=== PATIENT | female | born 1960 | race African-American/Black ===

== ENCOUNTER 2024-02-13 18:46 | Inpatient (IN) | payer MEDICAID ==
[~2024-02-13] VITALS: Ht 152.4 cm; Wt 161.0 kg
[2024-02-13 19:13] VITALS: BP 122/80; PULSE 115; RESP 20; TEMP 99.6
[2024-02-13 20:19] LABS: BASOPHILS % (AUTO) 0.2 % (0.0-2.0); HEMATOCRIT 37.3 % (36-48); HEMOGLOBIN 12.3 g/dL (12.0-16.0); LYMPHOCYTES # (AUTO) 1.3 K/uL (2.5-16.5); MEAN CORPUSCULAR HEMOGLOBIN 31 pg (27-31); MEAN CORPUSCULAR HGB CONC 33 g/dL (33-37); MEAN CORPUSCULAR VOLUME 93.8 fL (80-94); MONOCYTES # (AUTO) 0.6 K/uL (0.8-1.0); MONOCYTES % (AUTO) 2.7 % (1.7-9.3); NEUTROPHILS # (AUTO) 19.7 K/uL (1.8-7.7); NEUTROPHILS % (AUTO) 91.3 % (42.2-75.2); PLATELET COUNT (AUTO) 303 K/uL (140-450); RED BLOOD CELL COUNT(AUTO) 3.97 MIL/uL (4.20-5.40); RED CELL DISTRIBUTION WIDTH 13.9 % (11.6-13.7)
[2024-02-13 20:31] LABS: LYMPHOCYTES % (AUTO) 5.8 % (20.5-51.1)
[2024-02-13 20:34] LABS: WHITE BLOOD COUNT (AUTO) 21.6 K/uL (4.8-10.8)
[2024-02-13 20:40] LABS: ALANINE AMINOTRANSFERASE 24 U/L (12-78); ALBUMIN 2.7 g/dL (3.4-5.0); ALKALINE PHOSPHATASE 67 U/L (50-136); ASPARTATE AMINOTRANSFERASE 17 U/L (15-37); BILIRUBIN,DIRECT 0.1 mg/dL (0.0-0.3); CREATINE KINASE, TOTAL 28 U/L (26-192); LIPASE 13 U/L (16-77); TOTAL BILIRUBIN 0.7 mg/dL (0.0-1.0); TOTAL PROTEIN, SERUM 6.9 g/dL (6.4-8.2)
[2024-02-13 20:42] VITALS: O2SAT 96
[2024-02-13 20:42] LABS: FLU A ANTIGEN negative (NEGATIVE); FLU B ANTIGEN NEGATIVE (NEGATIVE)
[2024-02-13 20:42] LABS: LACTIC ACID 0.7 mmol/L (0.4-2.0)
[2024-02-13 20:43] LABS: INR 1.08 (0.8-1.2); PARTIAL THROMBOPLASTIN TIME 29.7 secs (22-35.6); PROTHROMBIN TIME 11.3 secs (10.8-13.4)
[2024-02-13] MEDS: cefTRIAXone 2,000 MG in DEXTROSE 5% 100 ML IV ONE (20:45)
[2024-02-13] MEDS: VANCOMYCIN 1,000 MG in DEXTROSE 5% 250 ML IV ONE (20:45)
[2024-02-13 20:57] LABS: ANION GAP 15.5 (8-16); CARBON DIOXIDE 21.5 mmol/L (21-32); CREATININE 0.4 mg/dL (0.6-1.3)
[2024-02-13] MEDS: KETOROLAC 30 MG/ML VIAL IVP ONE (21:00)
[2024-02-13] MEDS: NACL 0.9% 1,000 ML IV ONE ×2 (21:00)
[2024-02-13] MEDS: ACETAMINOPHEN 325 MG TAB PO ONE (21:16)
[2024-02-13] MEDS ORDERED: cefTRIAXone 2,000 MG VIAL ONE (21:18)
[2024-02-13] MEDS ORDERED: VANCOMYCIN 1,000 MG VIAL ONE (22:33)
[2024-02-13 23:30] VITALS: O2SAT 100
[2024-02-14 00:47] LABS: APPEARANCE,URINE HAZY (CLEAR); BILIRUBIN,URINE 2+ (NEGATIVE); BLOOD, URINE 3+ (NEGATIVE); COLOR,URINE YELLOW (YELLOW); LEUKOCYTE ESTERASE ,URINE TRACE (NEGATIVE); NITRITE, URINE NEGATIVE (NEGATIVE); PROTEIN,URINE 1+ (NEGATIVE); UGLUCOSE NEGATIVE (NEGATIVE)
[2024-02-14 00:58] LABS: ICTOTEST NEGATIVE (NEGATIVE)
[2024-02-14 01:01] LABS: RBC,URINE 50-80 /HPF (0-5)
[2024-02-14 01:04] LABS: WBC,URINE 16-25 (MOD) /HPF (0-5)
[2024-02-14 01:05] LABS: BACTERIA,URINE 2+ /HPF (None Seen); MUCUS,URINE 1+ /LPF (None Seen)
[2024-02-14 01:06] LABS: YEAST,URINE Rare /HPF (None Seen)
[2024-02-14 01:53] VITALS: O2SAT 96
[2024-02-14] MEDS ORDERED: ONDANSETRON 4 MG/2 ML VIAL IM/IVP PRN (02:25)
[2024-02-14] MEDS ORDERED: guaiFENesin DM 200/20 MG-10 ML 10 ML UDC PO PRN (02:25)
[2024-02-14] MEDS ORDERED: DOCUSATE SODIUM 100 MG GELCAP PO PRN (02:25)
[2024-02-14] MEDS ORDERED: BISA-213 RC (02:49)
[2024-02-14] MEDS ORDERED: SPIMDI INH (02:49)
[2024-02-14] MEDS ORDERED: GABA300C PO (02:49)
[2024-02-14] MEDS ORDERED: ONDA-188 PO (02:49)
[2024-02-14] MEDS ORDERED: FURO-570 PO (02:49)
[2024-02-14] MEDS ORDERED: ACET-10509 PO (02:49)
[2024-02-14] MEDS ORDERED: BUDE1AER IH (02:49)
[2024-02-14] MEDS ORDERED: POTA10TA70 PO (02:49)
[2024-02-14] MEDS ORDERED: CALC500C17 PO (02:49)
[2024-02-14] MEDS ORDERED: ASPI-1822 PO (02:49)
[2024-02-14] MEDS ORDERED: MAGN400S60 PO (02:49)
[2024-02-14] MEDS ORDERED: MULT-2253 PO (02:49)
[2024-02-14] MEDS ORDERED: ALBU0.0912 IH (02:49)
[2024-02-14] MEDS ORDERED: HYDR28CR68 TP (02:49)
[2024-02-14] MEDS ORDERED: ERGO-30 PO (02:49)
[2024-02-14] MEDS ORDERED: DICL-342 PO (02:49)
[2024-02-14] MEDS ORDERED: APIX2.5 PO (02:49)
[2024-02-14] MEDS ORDERED: DULO30EC PO (02:49)
[2024-02-14] MEDS ORDERED: FOLI1TAB90 PO (02:49)
[2024-02-14] MEDS ORDERED: DIPH25TA53 PO (02:49)
[2024-02-14] MEDS ORDERED: ACET-8905 PO (02:49)
[2024-02-14 04:34] VITALS: PULSE 16; RESP 16; O2SAT 98
[2024-02-14] MEDS ORDERED: PIPERACILLIN/TAZOBACTAM 3.375 GM in DEXTROSE 5% 50 ML IV SCH (05:00)
[2024-02-14] MEDS: ACETAMINOPHEN 325 MG TAB PO PRN (06:40)
[2024-02-14 06:44] LABS: BASOPHILS # (AUTO) 0.1 K/uL (0.00-0.22); BASOPHILS % (AUTO) 0.6 % (0.0-2.0); EOSINOPHILS # (AUTO) 0.1 K/uL (0-0.4); EOSINOPHILS % (AUTO) 0.9 % (0.0-4.0); HEMATOCRIT 36.8 % (36-48); HEMOGLOBIN 12.3 g/dL (12.0-16.0); LYMPHOCYTES # (AUTO) 0.6 K/uL (2.5-16.5); LYMPHOCYTES % (AUTO) 4.3 % (20.5-51.1); MEAN CORPUSCULAR HEMOGLOBIN 32 pg (27-31); MEAN CORPUSCULAR HGB CONC 34 g/dL (33-37); MEAN CORPUSCULAR VOLUME 94.6 fL (80-94); MONOCYTES # (AUTO) 0.4 K/uL (0.8-1.0); MONOCYTES % (AUTO) 2.8 % (1.7-9.3); NEUTROPHILS # (AUTO) 12.2 K/uL (1.8-7.7); NEUTROPHILS % (AUTO) 91.4 % (42.2-75.2); PLATELET COUNT (AUTO) 277 K/uL (140-450); RED BLOOD CELL COUNT(AUTO) 3.89 MIL/uL (4.20-5.40); RED CELL DISTRIBUTION WIDTH 13.8 % (11.6-13.7); WHITE BLOOD COUNT (AUTO) 13.4 K/uL (4.8-10.8)
[2024-02-14 07:18] LABS: ALBUMIN 2.6 g/dL (3.4-5.0); ANION GAP 11.5 (8-16); CALCIUM 9.9 mg/dL (8.5-10.1); CARBON DIOXIDE 27.1 mmol/L (21-32); CREATININE 0.5 mg/dL (0.6-1.3); PHOSPHORUS 2.5 mg/dL (2.5-4.9); POTASSIUM 3.6 mmol/L (3.5-5.1); TOTAL BILIRUBIN 0.7 mg/dL (0.0-1.0); TOTAL PROTEIN, SERUM 6.4 g/dL (6.4-8.2)
[2024-02-14] MEDS: NACL 0.9% 1,000 ML IV SCH (07:22)
[2024-02-14 08:00] VITALS: BP 110/51; PULSE 81; PULSE 87; RESP 18; TEMP 99.6; O2SAT 95; O2SAT 98
[2024-02-14] MEDS: PANTOPRAZOLE 40 MG TABEC PO SCH (08:48)
[2024-02-14] MEDS: LEVOFLOXACIN 250 MG/D5 PREMIX 50 ML IV SCH (11:30)
[2024-02-14] MEDS: SODIUM PHOSPHATE 118 ML ENEM RC ONE (11:35)
[2024-02-14] MEDS: POLYETHYLENE GLYCOL 17 GM/PKT PO SCH (11:39)
[2024-02-14 12:00] VITALS: BP 115/74; PULSE 71; PULSE 77; RESP 18; TEMP 99.4; O2SAT 98
[2024-02-14] MEDS: metroNIDAZOLE 500 MG/NS PREMIX 100 ML IV SCH (13:11)
[2024-02-14 16:00] VITALS: BP 117/63; PULSE 85; PULSE 86; RESP 18; TEMP 99; O2SAT 97
[2024-02-14 20:00] VITALS: BP 108/61; PULSE 100; PULSE 101; RESP 19; TEMP 97.7; O2SAT 97; O2SAT 99
[2024-02-15] VITALS: BP 99/50; PULSE 101; PULSE 103; RESP 18; TEMP 98.9; O2SAT 98
[2024-02-15 04:00] VITALS: BP 109/57; PULSE 100; PULSE 92; RESP 18; TEMP 97.5; O2SAT 95
[2024-02-15 05:49] LABS: BASOPHILS # (AUTO) 0.4 K/uL (0.00-0.22); BASOPHILS % (AUTO) 3.1 % (0.0-2.0); EOSINOPHILS # (AUTO) 1.5 K/uL (0-0.4); EOSINOPHILS % (AUTO) 12.4 % (0.0-4.0); HEMATOCRIT 45.2 % (36-48); HEMOGLOBIN 15.3 g/dL (12.0-16.0); LYMPHOCYTES # (AUTO) 0.6 K/uL (2.5-16.5); LYMPHOCYTES % (AUTO) 4.8 % (20.5-51.1); MEAN CORPUSCULAR HEMOGLOBIN 32 pg (27-31); MEAN CORPUSCULAR HGB CONC 34 g/dL (33-37); MEAN CORPUSCULAR VOLUME 93.3 fL (80-94); MONOCYTES # (AUTO) 0.4 K/uL (0.8-1.0); MONOCYTES % (AUTO) 3.4 % (1.7-9.3); NEUTROPHILS % (AUTO) 76.3 % (42.2-75.2); PLATELET COUNT (AUTO) 306 K/uL (140-450); RED BLOOD CELL COUNT(AUTO) 4.85 MIL/uL (4.20-5.40); RED CELL DISTRIBUTION WIDTH 13.8 % (11.6-13.7); WHITE BLOOD COUNT (AUTO) 11.8 K/uL (4.8-10.8)
[2024-02-15 06:36] LABS: ALBUMIN 2.3 g/dL (3.4-5.0); ANION GAP 17.1 (8-16); CALCIUM 9.7 mg/dL (8.5-10.1); CARBON DIOXIDE 20.7 mmol/L (21-32); CREATININE 0.4 mg/dL (0.6-1.3); POTASSIUM 3.8 mmol/L (3.5-5.1); TOTAL BILIRUBIN 0.6 mg/dL (0.0-1.0)
[2024-02-15 08:00] VITALS: BP 121/53; PULSE 86; PULSE 87; RESP 19; TEMP 96.9; O2SAT 94
[2024-02-15] MEDS: metroNIDAZOLE 500 MG/NS PREMIX 100 ML IV SCH (08:00)
[2024-02-15] MEDS ORDERED: POLYETHYLENE GLYCOL 17 GM/PKT PO SCH (09:00)
[2024-02-15] MEDS ORDERED: VANCOMYCIN PER PHARMACY MC PRN (09:30)
[2024-02-15] MEDS: VANCOMYCIN 1.25GM PREMIX 250 ML IV SCH (10:12)
[2024-02-15] MEDS: diphenhydrAMINE 50 MG/ML VIAL IVP SCH (11:57)
[2024-02-15 12:00] VITALS: BP 114/54; PULSE 106; PULSE 88; RESP 19; TEMP 97.3
[2024-02-15 16:00] VITALS: BP 127/53; PULSE 81; PULSE 82; RESP 18; TEMP 99.3; O2SAT 94
[2024-02-15 20:00] VITALS: BP 110/47; PULSE 87; PULSE 89; RESP 18; TEMP 98.3; O2SAT 94; O2SAT 97
[2024-02-16] VITALS: BP 110/42; PULSE 81; PULSE 85; RESP 18; TEMP 97.6; O2SAT 98
[2024-02-16] MEDS ORDERED: VANCOMYCIN PER PHARMACY MC PRN
[2024-02-16] MEDS: metroNIDAZOLE 500 MG/NS PREMIX 100 ML IV SCH (00:12)
[2024-02-16] MEDS ORDERED: VANCOMYCIN 1GM/DEXT 5% PREMIX 200 ML IV SCH (01:00)
[2024-02-16] MEDS ORDERED: [UNRECOGNIZED DRUG - OTHER] IV SCH (01:30)
[2024-02-16] MEDS ORDERED: VANCOMYCIN IV SCH (01:30)
[2024-02-16] MEDS: VANCOMYCIN 1,000 MG VIAL ONE (01:50)
[2024-02-16 04:00] VITALS: BP 98/43; PULSE 82; PULSE 85; RESP 17; TEMP 96.9; O2SAT 96
[2024-02-16 06:38] LABS: BASOPHILS % (AUTO) 0.3 % (0.0-2.0); EOSINOPHILS # (AUTO) 2.7 K/uL (0-0.4); EOSINOPHILS % (AUTO) 29.4 % (0.0-4.0); HEMATOCRIT 34.8 % (36-48); HEMOGLOBIN 11.9 g/dL (12.0-16.0); LYMPHOCYTES # (AUTO) 1.1 K/uL (2.5-16.5); LYMPHOCYTES % (AUTO) 11.5 % (20.5-51.1); MEAN CORPUSCULAR HEMOGLOBIN 32 pg (27-31); MEAN CORPUSCULAR HGB CONC 34 g/dL (33-37); MEAN CORPUSCULAR VOLUME 92.8 fL (80-94); MONOCYTES # (AUTO) 0.7 K/uL (0.8-1.0); MONOCYTES % (AUTO) 7.1 % (1.7-9.3); NEUTROPHILS # (AUTO) 4.7 K/uL (1.8-7.7); NEUTROPHILS % (AUTO) 51.7 % (42.2-75.2); PLATELET COUNT (AUTO) 333 K/uL (140-450); RED BLOOD CELL COUNT(AUTO) 3.75 MIL/uL (4.20-5.40); RED CELL DISTRIBUTION WIDTH 13.4 % (11.6-13.7); WHITE BLOOD COUNT (AUTO) 9.2 K/uL (4.8-10.8)
[2024-02-16 07:02] LABS: ALBUMIN 2.1 g/dL (3.4-5.0); ANION GAP 10.8 (8-16); CALCIUM 9.3 mg/dL (8.5-10.1); CARBON DIOXIDE 26.7 mmol/L (21-32); CREATININE 0.4 mg/dL (0.6-1.3); POTASSIUM 3.5 mmol/L (3.5-5.1); TOTAL BILIRUBIN 0.7 mg/dL (0.0-1.0); TOTAL PROTEIN, SERUM 5.3 g/dL (6.4-8.2)
[2024-02-16 08:00] VITALS: BP 108/37; PULSE 82; PULSE 83; RESP 18; TEMP 97.9; O2SAT 98
[2024-02-16] MEDS: VANCOMYCIN 1.25GM PREMIX 250 ML IV SCH (10:40)
[2024-02-16 12:00] VITALS: BP 126/57; PULSE 87; RESP 18; TEMP 98.2; O2SAT 98
[2024-02-16 16:00] VITALS: BP 102/43; PULSE 83; RESP 18; TEMP 97.9; O2SAT 99
[2024-02-16 20:00] VITALS: BP 105/47; PULSE 95; RESP 18; TEMP 97.2; O2SAT 97
[2024-02-17 04:00] VITALS: BP 118/48; PULSE 75; RESP 18; TEMP 97.7; O2SAT 97
[2024-02-17 05:41] LABS: BASOPHILS # (AUTO) 0.1 K/uL (0.00-0.22); BASOPHILS % (AUTO) 0.8 % (0.0-2.0); EOSINOPHILS # (AUTO) 2.8 K/uL (0-0.4); EOSINOPHILS % (AUTO) 26.6 % (0.0-4.0); HEMATOCRIT 35.6 % (36-48); HEMOGLOBIN 11.8 g/dL (12.0-16.0); LYMPHOCYTES # (AUTO) 1.6 K/uL (2.5-16.5); LYMPHOCYTES % (AUTO) 15.2 % (20.5-51.1); MEAN CORPUSCULAR HEMOGLOBIN 31 pg (27-31); MEAN CORPUSCULAR HGB CONC 33 g/dL (33-37); MEAN CORPUSCULAR VOLUME 92.9 fL (80-94); MONOCYTES # (AUTO) 0.8 K/uL (0.8-1.0); MONOCYTES % (AUTO) 7.4 % (1.7-9.3); NEUTROPHILS # (AUTO) 5.3 K/uL (1.8-7.7); PLATELET COUNT (AUTO) 330 K/uL (140-450); RED BLOOD CELL COUNT(AUTO) 3.83 MIL/uL (4.20-5.40); RED CELL DISTRIBUTION WIDTH 13.9 % (11.6-13.7); WHITE BLOOD COUNT (AUTO) 10.5 K/uL (4.8-10.8)
[2024-02-17 06:11] LABS: ALBUMIN 2.3 g/dL (3.4-5.0); CALCIUM 9.5 mg/dL (8.5-10.1); CARBON DIOXIDE 27.4 mmol/L (21-32); CREATININE 0.4 mg/dL (0.6-1.3); POTASSIUM 3.4 mmol/L (3.5-5.1); TOTAL BILIRUBIN 0.8 mg/dL (0.0-1.0); TOTAL PROTEIN, SERUM 5.5 g/dL (6.4-8.2)
[2024-02-17 08:00] VITALS: BP 112/56; PULSE 77; RESP 18; TEMP 98.5; O2SAT 97
[2024-02-17 16:00] VITALS: BP 113/46; PULSE 91; RESP 18; TEMP 98.6; O2SAT 98
[2024-02-17] MEDS: POTASSIUM CHLORIDE 10 MEQ TABER PO PRN (17:21)
[2024-02-17 19:56] VITALS: PULSE 68; RESP 19; O2SAT 97
[2024-02-17 20:00] VITALS: BP 120/51; PULSE 90; RESP 18; TEMP 98.2; O2SAT 98
[2024-02-17] MEDS: ZOLPIDEM 5 MG TAB PO PRN (20:53)
[2024-02-18 04:24] VITALS: BP 108/49; PULSE 81; RESP 18; TEMP 97.8; O2SAT 97
[2024-02-18 05:33] LABS: BASOPHILS # (AUTO) 0.1 K/uL (0.00-0.22); BASOPHILS % (AUTO) 0.7 % (0.0-2.0); EOSINOPHILS # (AUTO) 2.4 K/uL (0-0.4); EOSINOPHILS % (AUTO) 24.7 % (0.0-4.0); HEMATOCRIT 33.5 % (36-48); HEMOGLOBIN 11.3 g/dL (12.0-16.0); LYMPHOCYTES # (AUTO) 2.6 K/uL (2.5-16.5); LYMPHOCYTES % (AUTO) 26.5 % (20.5-51.1); MEAN CORPUSCULAR HEMOGLOBIN 32 pg (27-31); MEAN CORPUSCULAR HGB CONC 34 g/dL (33-37); MEAN CORPUSCULAR VOLUME 92.8 fL (80-94); MONOCYTES # (AUTO) 0.7 K/uL (0.8-1.0); MONOCYTES % (AUTO) 6.9 % (1.7-9.3); NEUTROPHILS % (AUTO) 41.2 % (42.2-75.2); PLATELET COUNT (AUTO) 330 K/uL (140-450); RED BLOOD CELL COUNT(AUTO) 3.61 MIL/uL (4.20-5.40); RED CELL DISTRIBUTION WIDTH 13.8 % (11.6-13.7); WHITE BLOOD COUNT (AUTO) 9.7 K/uL (4.8-10.8)
[2024-02-18 06:13] LABS: ALBUMIN 2.3 g/dL (3.4-5.0); CALCIUM 9.5 mg/dL (8.5-10.1); CARBON DIOXIDE 26.7 mmol/L (21-32); POTASSIUM 3.7 mmol/L (3.5-5.1); TOTAL BILIRUBIN 0.8 mg/dL (0.0-1.0); TOTAL PROTEIN, SERUM 3.9 g/dL (6.4-8.2)
[2024-02-18 06:47] LABS: CREATININE 0.4 mg/dL (0.6-1.3)
[2024-02-18 08:00] VITALS: BP 104/50; PULSE 81; RESP 18; TEMP 98.6; O2SAT 98
[2024-02-18 20:00] VITALS: BP 112/58; PULSE 84; RESP 20; TEMP 98.8; O2SAT 96
[2024-02-19] MEDS: cefTRIAXone 1,000 MG VIAL ONE (01:36)
[2024-02-19 04:00] VITALS: BP 109/56; PULSE 84; RESP 19; TEMP 98.2; O2SAT 100
[2024-02-19 08:00] VITALS: BP 116/57; PULSE 60; RESP 18; TEMP 98.4; O2SAT 98
[2024-02-19 10:01] LABS: BASOPHILS # (AUTO) 0.1 K/uL (0.00-0.22); BASOPHILS % (AUTO) 0.7 % (0.0-2.0); EOSINOPHILS # (AUTO) 2.2 K/uL (0-0.4); EOSINOPHILS % (AUTO) 21.1 % (0.0-4.0); HEMATOCRIT 36.6 % (36-48); HEMOGLOBIN 12.1 g/dL (12.0-16.0); LYMPHOCYTES # (AUTO) 2.8 K/uL (2.5-16.5); LYMPHOCYTES % (AUTO) 26.6 % (20.5-51.1); MEAN CORPUSCULAR HEMOGLOBIN 31 pg (27-31); MEAN CORPUSCULAR HGB CONC 33 g/dL (33-37); MEAN CORPUSCULAR VOLUME 92.4 fL (80-94); MONOCYTES # (AUTO) 0.8 K/uL (0.8-1.0); MONOCYTES % (AUTO) 7.8 % (1.7-9.3); NEUTROPHILS # (AUTO) 4.6 K/uL (1.8-7.7); NEUTROPHILS % (AUTO) 43.8 % (42.2-75.2); PLATELET COUNT (AUTO) 371 K/uL (140-450); RED BLOOD CELL COUNT(AUTO) 3.96 MIL/uL (4.20-5.40); RED CELL DISTRIBUTION WIDTH 13.6 % (11.6-13.7); WHITE BLOOD COUNT (AUTO) 10.5 K/uL (4.8-10.8)
[2024-02-19 10:32] LABS: ALBUMIN 2.5 g/dL (3.4-5.0); ANION GAP 8.2 (8-16); CALCIUM 9.7 mg/dL (8.5-10.1); CARBON DIOXIDE 30.5 mmol/L (21-32); CREATININE 0.4 mg/dL (0.6-1.3); POTASSIUM 3.7 mmol/L (3.5-5.1); TOTAL BILIRUBIN 0.7 mg/dL (0.0-1.0)
[2024-02-19 20:00] VITALS: BP 115/54; PULSE 79; RESP 20; TEMP 97.8; O2SAT 100
[2024-02-19 20:31] VITALS: PULSE 62; RESP 18; O2SAT 98
[2024-02-20 04:00] VITALS: BP 114/56; PULSE 87; RESP 19; TEMP 98.4; O2SAT 95
[2024-02-20 06:31] LABS: BASOPHILS # (AUTO) 0.1 K/uL (0.00-0.22); BASOPHILS % (AUTO) 1.3 % (0.0-2.0); EOSINOPHILS # (AUTO) 2.2 K/uL (0-0.4); EOSINOPHILS % (AUTO) 19.6 % (0.0-4.0); HEMATOCRIT 36.1 % (36-48); LYMPHOCYTES # (AUTO) 4.3 K/uL (2.5-16.5); LYMPHOCYTES % (AUTO) 38.3 % (20.5-51.1); MEAN CORPUSCULAR HEMOGLOBIN 31 pg (27-31); MEAN CORPUSCULAR HGB CONC 33 g/dL (33-37); MEAN CORPUSCULAR VOLUME 93.5 fL (80-94); MONOCYTES # (AUTO) 0.6 K/uL (0.8-1.0); MONOCYTES % (AUTO) 5.1 % (1.7-9.3); NEUTROPHILS % (AUTO) 35.7 % (42.2-75.2); PLATELET COUNT (AUTO) 379 K/uL (140-450); RED BLOOD CELL COUNT(AUTO) 3.86 MIL/uL (4.20-5.40); RED CELL DISTRIBUTION WIDTH 13.8 % (11.6-13.7); WHITE BLOOD COUNT (AUTO) 11.3 K/uL (4.8-10.8)
[2024-02-20 06:49] LABS: ALBUMIN 2.6 g/dL (3.4-5.0); ANION GAP 13.7 (8-16); CALCIUM 9.4 mg/dL (8.5-10.1); CARBON DIOXIDE 25.9 mmol/L (21-32); CREATININE 0.4 mg/dL (0.6-1.3); POTASSIUM 3.6 mmol/L (3.5-5.1); TOTAL BILIRUBIN 0.5 mg/dL (0.0-1.0)
[2024-02-20] MEDS: HYDROcodone/APAP 7.5/325 MG 1 TAB PO PRN (09:42)
[2024-02-20] MEDS ORDERED: ROC1PM IV (18:45)
[2024-02-20 20:00] VITALS: BP 112/66; PULSE 86; RESP 18; RESP 20; TEMP 98.6; O2SAT 94; O2SAT 96
[2024-02-21 04:00] VITALS: BP 120/62; PULSE 88; RESP 18; TEMP 98.2; O2SAT 98
[2024-02-21 08:19] VITALS: PULSE 70; RESP 18; O2SAT 97
[2024-02-21 15:59] LABS: BASOPHILS # (AUTO) 0.1 K/uL (0.00-0.22); BASOPHILS % (AUTO) 1.2 % (0.0-2.0); EOSINOPHILS # (AUTO) 1.3 K/uL (0-0.4); EOSINOPHILS % (AUTO) 17.1 % (0.0-4.0); HEMATOCRIT 37.4 % (36-48); HEMOGLOBIN 12.1 g/dL (12.0-16.0); LYMPHOCYTES # (AUTO) 2.3 K/uL (2.5-16.5); MEAN CORPUSCULAR HEMOGLOBIN 31 pg (27-31); MEAN CORPUSCULAR HGB CONC 32 g/dL (33-37); MEAN CORPUSCULAR VOLUME 94.2 fL (80-94); MONOCYTES # (AUTO) 0.7 K/uL (0.8-1.0); NEUTROPHILS # (AUTO) 3.3 K/uL (1.8-7.7); NEUTROPHILS % (AUTO) 42.7 % (42.2-75.2); PLATELET COUNT (AUTO) 416 K/uL (140-450); RED BLOOD CELL COUNT(AUTO) 3.98 MIL/uL (4.20-5.40); RED CELL DISTRIBUTION WIDTH 14.5 % (11.6-13.7); WHITE BLOOD COUNT (AUTO) 7.8 K/uL (4.8-10.8)
[2024-02-21 16:09] LABS: ALBUMIN 2.6 g/dL (3.4-5.0); CALCIUM 9.4 mg/dL (8.5-10.1); CREATININE 0.4 mg/dL (0.6-1.3); TOTAL BILIRUBIN 0.3 mg/dL (0.0-1.0); TOTAL PROTEIN, SERUM 6.1 g/dL (6.4-8.2)
[2024-02-21 16:53] VITALS: PULSE 85; TEMP 98.1; O2SAT 97
[2024-02-21 20:00] VITALS: PULSE 70; RESP 18; O2SAT 97
[2024-02-22 04:00] VITALS: BP 110/50; PULSE 84; RESP 16; TEMP 98; O2SAT 97
[2024-02-22 08:00] VITALS: BP 120/59; PULSE 76; RESP 18; TEMP 97.8; O2SAT 95; O2SAT 97
[2024-02-22] MEDS: Z-GUARD PASTE TP SCH (10:23)
[2024-02-22] MEDS: HYDRAGUARD CREAM TP SCH (10:23)
[2024-02-22 14:10] VITALS: BP 120/59; PULSE 76; RESP 18; TEMP 97.8
== END 2024-02-22 15:35 | DRG 720 ==
LOC: MED 18:46 → MTU 02-14 02:29
PROVIDERS: ADMIT Student in an Organized Health Care Education/Training Program; ATTEND Student in an Organized Health Care Education/Training Program
DX: A41.9 Sepsis, unspecified organism (principal); Z68.44 Body mass index [BMI] 60.0-69.9, adult; N39.0 Urinary tract infection, site not specified; E66.9 Obesity, unspecified; B95.1 Streptococcus, group B, as the cause of diseases classified elsewhere; F32.A Depression, unspecified; J44.9 Chronic obstructive pulmonary disease, unspecified; R31.9 Hematuria, unspecified; K59.00 Constipation, unspecified; Z20.822 Contact with and (suspected) exposure to COVID-19; I89.0 Lymphedema, not elsewhere classified; I10 Essential (primary) hypertension; Z88.0 Allergy status to penicillin; K52.89 Other specified noninfective gastroenteritis and colitis
CPT/HCPCS: 36415; 70450; 71045; 76770; 80048; 80053; 80076; 80202; 81001; 82550; 82553; 83605; 83690; 83735; 83880; 84100; 84484; 85025; 85610; 85730; 87040; 87081; 87086; 87186; 93005; 93970; 96374; 96375; 99291; J0696; J1200; J1644; J1885; J1956; J3370; J3372; J3490; J7060; Q0092; Q0163

== ENCOUNTER 2024-03-29 19:58 | Emergency (ER) | payer MEDICAID ==
[~2024-03-29] VITALS: Ht 175.3 cm; Wt 156.5 kg
[~2024-03-29 19:58] MED LIST: ACET-10509 PO; ACET-8905 PO; ALBU0.0912 IH; APIX2.5 PO; ASPI-1822 PO; BISA-213 RC; BUDE1AER IH; CALC500C17 PO; DICL-342 PO; DIPH25TA53 PO; DULO30EC PO; ERGO-30 PO; FOLI1TAB90 PO; FURO-570 PO; GABA300C PO; HYDR28CR68 TP; MAGN400S60 PO; MULT-2253 PO; ONDA-188 PO; POTA10TA70 PO; ROC1PM IV; SPIMDI INH
[2024-03-29 20:26] VITALS: BP 128/66; PULSE 55; RESP 18; TEMP 98.2; O2SAT 99
[2024-03-29 21:30] LABS: BASOPHILS % (AUTO) 0.1 % (0.0-2.0); EOSINOPHILS # (AUTO) 0.3 K/uL (0-0.4); EOSINOPHILS % (AUTO) 2.5 % (0.0-4.0); HEMOGLOBIN 12.1 g/dL (12.0-16.0); LYMPHOCYTES # (AUTO) 0.9 K/uL (2.5-16.5); LYMPHOCYTES % (AUTO) 7.1 % (20.5-51.1); MEAN CORPUSCULAR HEMOGLOBIN 30 pg (27-31); MEAN CORPUSCULAR HGB CONC 33 g/dL (33-37); MEAN CORPUSCULAR VOLUME 92.8 fL (80-94); MONOCYTES # (AUTO) 0.4 K/uL (0.8-1.0); MONOCYTES % (AUTO) 3.7 % (1.7-9.3); NEUTROPHILS # (AUTO) 10.6 K/uL (1.8-7.7); NEUTROPHILS % (AUTO) 86.6 % (42.2-75.2); PLATELET COUNT (AUTO) 386 K/uL (140-450); RED BLOOD CELL COUNT(AUTO) 3.98 MIL/uL (4.20-5.40); RED CELL DISTRIBUTION WIDTH 15.3 % (11.6-13.7); WHITE BLOOD COUNT (AUTO) 12.2 K/uL (4.8-10.8)
[2024-03-29 21:44] LABS: ANION GAP 11.1 (8-16); CALCIUM 10.1 mg/dL (8.5-10.1); CARBON DIOXIDE 27.7 mmol/L (21-32); CREATININE 0.7 mg/dL (0.6-1.3); POTASSIUM 3.8 mmol/L (3.5-5.1)
[2024-03-29 21:52] LABS: INR 1.08 (0.8-1.2); PARTIAL THROMBOPLASTIN TIME 33.5 secs (22-35.6); PROTHROMBIN TIME 11.3 secs (10.8-13.4)
[2024-03-29 21:53] LABS: ALANINE AMINOTRANSFERASE 28 U/L (12-78); ALBUMIN 2.7 g/dL (3.4-5.0); ALKALINE PHOSPHATASE 74 U/L (50-136); ASPARTATE AMINOTRANSFERASE 19 U/L (15-37); BILIRUBIN,DIRECT 0.1 mg/dL (0.0-0.3); CREATINE KINASE, TOTAL 22 U/L (26-192); LACTIC ACID 1.3 mmol/L (0.4-2.0); LIPASE 15 U/L (16-77); TOTAL BILIRUBIN 0.5 mg/dL (0.0-1.0); TOTAL PROTEIN, SERUM 7.2 g/dL (6.4-8.2)
[2024-03-29 22:02] LABS: FLU A ANTIGEN negative (NEGATIVE); FLU B ANTIGEN NEGATIVE (NEGATIVE)
[2024-03-29 22:18] LABS: APPEARANCE,URINE CLEAR (CLEAR); BILIRUBIN,URINE 1+ (NEGATIVE); BLOOD, URINE 3+ (NEGATIVE); COLOR,URINE YELLOW (YELLOW); LEUKOCYTE ESTERASE ,URINE TRACE (NEGATIVE); NITRITE, URINE NEGATIVE (NEGATIVE); PROTEIN,URINE 1+ (NEGATIVE); UGLUCOSE NEGATIVE (NEGATIVE); UROBILINOGEN,URINE 0.2 EU/dL (0.2 - 1)
[2024-03-29 22:19] LABS: ICTOTEST POSITIVE (NEGATIVE)
[2024-03-29 22:22] LABS: BACTERIA,URINE >30 (MANY) /HPF (None Seen); MUCUS,URINE 1+ /LPF (None Seen); RBC,URINE TOO NUMEROUS TO COUN /HPF (0-5); SQUAMOUS EPITHELIAL CELL,UR 0-3 (FEW) /LPF (0-3 (FEW))
[2024-03-30] MEDS ORDERED: CEFP200T20 PO (00:38)
[2024-03-30] MEDS ORDERED: cefTRIAXone 1,000 MG VIAL ONE (00:39)
[2024-03-30] MEDS ORDERED: ACETAMINOPHEN EXTRA STRENGTH 500 MG TAB ONE (02:56)
[2024-03-30] MEDS: HYDROcodone/APAP 5/325 MG 1 TAB TAB PO ONE (03:01)
[2024-03-30] MEDS: ACETAMINOPHEN 325 MG TAB PO ONE (03:10)
[2024-03-30] MEDS: ACETAMINOPHEN EXTRA STRENGTH 500 MG TAB PO ONE (10:53)
[2024-03-30 12:15] VITALS: BP 110/69; PULSE 100; RESP 20; TEMP 98.6; O2SAT 98
== END 2024-03-30 12:15 ==
LOC: MED 19:58
DX: N39.0 Urinary tract infection, site not specified (principal); J44.9 Chronic obstructive pulmonary disease, unspecified; I10 Essential (primary) hypertension; F32.A Depression, unspecified; Z20.822 Contact with and (suspected) exposure to COVID-19; Z79.82 Long term (current) use of aspirin; Z79.899 Other long term (current) drug therapy; Z88.0 Allergy status to penicillin
CPT/HCPCS: 36415; 71045; 74176; 80048; 80076; 81001; 82550; 83605; 83690; 83880; 84484; 85025; 85610; 85730; 87040; 87086; 87186; 87426; 87804; 93005; 96365; 99285; J0696; Q0092